=== PATIENT | female | born 1950 | race Caucasian/White ===

== ENCOUNTER → 2020-08-31 18:12 | Outpatient (CLI) | payer MEDICARE, SELFPAY ==
[2020-08-31 18:44] LABS: Basophils # 0.1 K/mm3 (0-0.2); Basophils % 0.6 % (0.1-2.0); Eosinophils # 0.3 K/mm3 (0.0-0.4); Eosinophils % 3.8 % (0.1-12.0); Hemoglobin 13.7 g/dL (12.2-16.2); Lymphocytes # 3.2 K/mm3 (0.7-4.5); Lymphocytes % 36.6 % (10-50); Mean Corpuscular HGB Conc 31.7 g/dL (31.8-35.4); Mean Corpuscular Hemoglobin 30.1 pg (27.0-31.2); Mean Corpuscular Volume 94.7 fl (81-99); Mean Platelet Volume 9.9 fl (7.4-10.4); Monocytes # 0.5 K/mm3 (0.1-1.0); Monocytes % 5.7 % (1.7-9.3); Neutrophils # 4.6 K/mm3 (1.8-7.8); Neutrophils % 53.3 % (37.0-80.0); Platelet Count 339 K/mm3 (142-424); Red Blood Count 4.54 M/mm3 (4.20-5.40); Red Cell Distribution Width 13.4 % (11.5-17.5); White Blood Count 8.7 K/mm3 (4.8-10.8)
[2020-08-31 18:45] LABS: Alanine Aminotransferase 16 U/L (12-78); Albumin Level 4.3 g/dl (3.5-5.0); Albumin/Globulin Ratio 1.6 (1.1-1.8); Alkaline Phosphatase 116 U/L (38-126); Anion Gap 10.8 mEq/L (5-15); Aspartate Amino Transferase 28 U/L (14-36); Bilirubin,Total 0.4 mg/dl (0.2-1.3); Blood Urea Nitrogen 21 mg/dl (7-17); Calcium 9.9 mg/dl (8.4-10.2); Carbon Dioxide 29 mmol/L (22.0-30.0); Chloride 107 mmol/L (98-107); Cholesterol 187 mg/dl (140-200); Estimated Glomerular Filt Rate 62 ml/min (>60); GFR (African American) 76 ML/MIN (>60); Globulin 2.7 g/dL (1.3-3.2); Glucose 123 mg/dl (74-100); HDL Cholesterol 63 mg/dl (40-60); Potassium 3.8 mmoL/L (3.5-5.1); Sodium 143 mmol/L (136-145); Triglycerides 176 mg/dl (30-150); VLDL Cholesterol 35 mg/dL (0-40)
[2020-08-31 18:57] LABS: Direct LDL Cholesterol 81.91 mg/dL (100-129)
[2020-08-31 19:02] LABS: 25-OH Vitamin D, Total 40.5 ng/mL (30-100)
[2020-08-31 19:04] LABS: T4 (Thyroxine) 6.8 ug/dl (5.53-11.0)
[2020-08-31 19:17] LABS: Thyroid Stimulating Hormone 1.86 uIU/mL (0.465-4.68)
== END ==
PROVIDERS: Visit Provider Family Medicine
DX: E78.5 Hyperlipidemia, unspecified (principal); I10 Essential (primary) hypertension; E55.9 Vitamin D deficiency, unspecified
CPT/HCPCS: 80053; 80061; 82306; 84436; 84443; 85025

== ENCOUNTER 2023-10-17 12:49 | Outpatient (CLI) | payer MEDICARE, SELFPAY ==
--- NOTE | 2023-10-17 12:49 | CA_ITS ---
APPROVED REPORT EXAM: Comprehensive 2D, Doppler, and color-flow Echocardiogram Chisel Mortiser Operator: Junie Serrano, RT(R) Ht: 5 ft 4 in Wt: 156lbs BSA: 1.76 BP: 120/68 mmHg Indications: murmur, smoker, PTSD, MDD, chronic bereavement disorder. 2D Dimensions Left Atrium 4.05 cm F: 2.7 - 3.8 LVEF (Schumacher's) 52.30 % F: 54 - 74 LVOT 1.85 cm (M/F) 1.5-2.5 LV Volume 89.10 mL F: 46 - 106 LV Volume Index 50.6 mL/m2 F: 29 - 61 LA Volume 34.60 mL LA Volume Index 19.66 mL/m2 (M/F) 16-34 EF AP4 50.10 % EF AP2 50.6 % EF BP 52.3 % GL Strain -22.2 % M-Mode Dimensions RVDd 3.08 cm (0.9-2.6) LVDd 4.76 cm (3.5-5.7) Ao Diam 1.83 cm (2.0-3.7) LVDs 3.40 cm (3.5-5.7) IVSd 0.79 cm (0.6-1.1) PWd 0.64 cm (0.6-1.1) EF (Teich) 55.00% FS 28.60% EDV (Teich) 105.40 mL ESV (Teich) 47.40 mL LV Diastology E Decel Time 203 (160-240 msec) E/A Ratio 0.5 MED E' 5.4 (>= 7 cm/sec) E'/MED E' Ratio 11.83 (<= 14) LAT E' 6.3 (>= 10 cm/sec) E/LAT E' Ratio 10.14 (<= 14) Aortic Valve LVOT Max 147.0 (70-110 cm/s) SUSANNAH Index 1.25 cm2/m2 LVOT VTI 31.42 cm AoV Peak Karri. 178.0 (50-130 cm/s) AI PHT 559.00 ms AO Mean GR. 6.20 (<5 mmHg) AO VTI 38.5 (18-25 cm) SUSANNAH (VTI) 2.20 (2.5-4.5 cm2) Mitral Valve MV E Max Karri. 64.0 (40-130 cm/s) MV A Velocity 118.0 (40-130 cm/s) E/A Ratio 0.54 MV Decel. Time 203 (160-240 ms) Tricuspid Valve TR P. Velocity 271.00 cm/s RAP Estimate 15.00 mmHg RVSP 44.30 mmHg Left Ventricle The left ventricle is normal size (LVEDd 4.9 cm, LVESd 3.0 cm). The left ventricular systolic function is normal. The left ventricular ejection fraction is within the normal range. There is increased LV wall thickness. There is normal LV segmental wall motion. Mitral diastolic dysfunction. LVEF is 55%. Right Ventricle The right ventricle is normal size. The right ventricular systolic function is normal. Atria Left atrium is mildly dilated. Right atrium is mildly dilated. There is no Doppler evidence of interatrial shunt. Aortic Valve Aortic valve is mildly thickened. There is no aortic valvular stenosis. Moderate to severe aortic regurgitation. Mitral Valve The mitral valve leaflets are mildly thickened. No evidence of mitral valve stenosis. Mild mitral regurgitation. Tricuspid Valve The tricuspid valve leaflets are thin and pliable. Moderate tricuspid regurgitation. RVSP is 30-35 mmHg. Pulmonic Valve The pulmonary valve is normal in structure. Trace pulmonic regurgitation. Great Vessels The aortic root is normal in size. The ascending aorta is not well-visualized. IVC is normal in size and collapses >50% with inspiration. Pericardium There is no pericardial effusion. Other Information Study Quality: Fair Conclusion Normal biventricular size and systolic function. LVEDd 4.9 cm, LVESd 3.0 cm. Mild biatrial dilation. Mild MR/ Moderate TR. Moderate to severe AI. Further evaluation of the AI is recommended with cardiac MRI (aortic regurgitation/cardiomyopathy protocol) to evaluate severity and accurate LV dimensions and volumes. Electronically signed by : Rosemarie Truong MD 10/23/2023 00:32:07
== END 2023-10-17 23:59 | disposition home or self-care (01) ==
LOC: RT 12:49
PROVIDERS: PCP Family Medicine; Visit Provider Family Medicine
DX: R01.1 Cardiac murmur, unspecified (principal)
CPT/HCPCS: 93306

== ENCOUNTER 2023-12-10 12:58 | Outpatient (CLI) | payer MEDICARE, SELFPAY ==
--- NOTE | 2023-12-10 12:59 | CA_ITS ---
FINAL REPORT CLINICAL HISTORY: CAMELIA-H/o right carotid endartectomy x 15 years ago, Smoker, HTN, carotid bruit FINDINGS: RIGHT CAROTID: CCA PSV - 51 cm/sec ICA PSV - 163 cm/sec ICA/CCA PSV ratio -4.9 . Comments: Moderate plaque disease is noted. LEFTCAROTID: CCA PSV - 74. cm/sec ICA PSV - 153. cm/sec ICA/CCA PSV ratio - 3.3 . Comments: Moderate plaque disease is noted. Antegrade flow is seen within the vertebral arteries. IMPRESSION: Discrepant findings between ratios and velocities. Stenoses are probably less than 50% however the ratios would suggest greater than 50% stenosis. Recommend CTA for more complete assessment. Reviewed, Interpreted and Dictated by Maria De Jesus Melendrez MD Transcribed by Xenia Llamas Authenticated and [facility]
== END 2023-12-10 23:59 | disposition home or self-care (01) ==
LOC: RT 12:59
PROVIDERS: PCP Family Medicine; Visit Provider Nurse Practitioner Family
DX: R09.89 Other specified symptoms and signs involving the circulatory and respiratory systems (principal)
CPT/HCPCS: 93880

== ENCOUNTER → 2024-02-02 08:38 | Day surgery (SDC) | payer MEDICARE, SELFPAY ==
[2024-02-02 08:43] VITALS: BMI 26.2
== END | disposition home or self-care (01) ==
PROVIDERS: PCP Family Medicine; Visit Provider Internal Medicine
DX: Z53.9 Procedure and treatment not carried out, unspecified reason (principal)

== ENCOUNTER 2024-03-03 11:28 | Day surgery (SDC) | payer MEDICARE, SELFPAY ==
[2024-03-03] VITALS (11 sets, daily range): BP systolic 141–183; BP diastolic 69–97; PULSE 65–83; RESP 16–20; O2SAT 96–98; BMI 26.2
--- NOTE | 2024-03-03 11:05 | IR_ITS ---
APPROVED REPORT Patient Location: Outpatient PROCEDURES Left heart catheterization Left ventriculogram Selective coronary angiogram Drug-eluting stent deployment to the proximal to mid LAD Drug-eluting stent deployment to the second obtuse marginal artery off the circumflex artery Right selective internal carotid artery angiogram Right selective internal carotid artery intracerebral angiogram Left selective internal carotid artery angiogram Left selective internal carotid artery intracerebral angiogram Left vertebral artery angiography Bilateral selective renal angiography INDICATION Coronary artery disease, Angina pectoris, Severe carotid artery stenosis with angiographic ambiguity, Severe hypertension suspect renovascular hypertension, Suspected renal artery stenosis, Abnormal CCTA, Informed consent was obtained prior to the procedure. COMPLICATIONS NONE Estimated Blood Loss: LESS THAN 10 ML TECHNIQUE One percent lidocaine was used to anesthetize the right groin. The right femoral artery was accessed via the Seldinger technique. A5-Bulgarian sheath was placed in the right femoral artery. The JL-4 and JR-4 catheter was also used to perform left heart catheterization left ventriculogram and selective coronary angiogram. The JR4 catheter was used to perform bilateral selective carotid artery angiography with intracerebral angiography. The JR4 catheter was also used to perform nonselective left vertebral artery angiography. Patient had a blood pressure over 200 mmHg and had bilateral carotid artery disease. Given her severe hypertension with renal dysfunction there was a high clinical suspicion for renal artery stenosis. The JR4 catheter was used to perform bilateral selective renal angiography. At the end of the diagnostic angiogram therapeutic Was administered giving a therapeutic ACT and the 5 Bulgarian sheath was exchanged for a 6 Bulgarian sheath. A 6 Bulgarian JL 4 guide catheter was placed in the left main artery followed by Choice PT extra-support wire placed in the second obtuse marginal artery. A 2.5 x 22 mm [place] frontier stent was deployed in the proximal obtuse marginal artery at 20 niraj reducing the severe stenosis to 0% an additional wire was placed into the LAD and a 3 mm x 22 mm [place] frontier stent was placed in the proximal to mid LAD and deployed at 20 niraj. While this jailed the first diagonal artery the first diagonal artery continued with JUSTINE-3 flow. There are excellent angiographic results. After achieving excellent angiograph results the apparatus was removed the groin is reprepped closure change sheath was removed good hemostasis was achieved using Perclose device patient was transferred to the postop putting in stable condition. The LAD lesion was difficult to see and required frame by frame analysis. There was a circumferential stenosis immediately after the first diagonal artery. ANGIOGRAPHIC RESULTS The left main artery Normal The left anterior descending artery Has proximal 10 to 20% stenosis. There is a concentric 80% stenosis immediately distal to a large first diagonal artery which is best evaluated in GHANAIAN 27 cranial 18 with frame by frame analysis. The remaining LAD is widely patent. The first diagonal artery is a large vessel with mid vessel 30% stenoses The circumflex artery Is a dominant vessel and has proximal calcified 50% stenosis along a tortuous bend. The large second obtuse marginal artery has a proximal concentric 90% stenosis The right coronary artery Nondominant normal The BLANCA ventriculogram reveals Normal 65% The left ventricular end-diastolic pressure 10 mmHg Left vertebral artery originates from the left subclavian artery and is widely patent Left subclavian artery has a proximal 40 to 50% stenosis Left common carotid artery is widely patent Left internal carotid artery has a proximal 40% concentric stenosis. There is no aneurysmal dilatation or atherosclerotic plaque in the distal or intracerebral vasculature Right internal carotid artery has a proximal 60 to 70% concentric stenosis. There is no aneurysmal dilatation or atherosclerotic plaque in the distal or intracerebral vasculature Right renal artery singular normal Left renal artery singular and has an ostial 40% nonflow limiting stenosis IMPRESSION Severe disease in the mid LAD as described above Successful stenting of the proximal to mid LAD severe disease reduced to 0% with 1 drug-eluting stent Successful stenting of the large second obtuse marginal artery severe disease reduced to 0% with 1 drug-eluting stent Moderate to severe right internal carotid artery stenosis which is best managed medically Moderate left internal carotid artery stenosis Normal right renal artery Mild to moderate left renal artery stenosis PLAN 1. Dual antiplatelet therapy 2. Patient is currently on metoprolol tartrate 100 mg daily. Patient should be on a twice daily beta-miri because of the fluctuating hypertension. Metoprolol will be discontinued and carvedilol 25 mg twice daily will be started 3. LDL less than 55 to achieve that high intensity statin 4. Avoidance of tobacco products 5. Risk factor modification 6. Cardiac rehabilitation Electronically signed by : Rodrigue Hanna MD 03/03/2024 14:57:43
[2024-03-03 12:15] LABS: Basophils # 0.1 K/mm3 (0-0.2); Basophils % 1.3 % (0.1-2.0); Eosinophils # 0.4 K/mm3 (0.0-0.4); Eosinophils % 4.8 % (0.1-12.0); Hematocrit 42.9 % (37.0-47.0); Hemoglobin 13.9 g/dL (12.2-16.2); Lymphocytes # 2.6 K/mm3 (0.7-4.5); Lymphocytes % 31.4 % (10-50); Mean Corpuscular HGB Conc 32.5 g/dL (31.8-35.4); Mean Corpuscular Hemoglobin 31.2 pg (27.0-31.2); Mean Corpuscular Volume 95.8 fl (81-99); Mean Platelet Volume 8.5 fl (7.4-10.4); Monocytes # 0.5 K/mm3 (0.1-1.0); Monocytes % 6.3 % (1.7-9.3); Neutrophils # 4.6 K/mm3 (1.8-7.8); Neutrophils % 56.2 % (37.0-80.0); Platelet Count 334 K/mm3 (142-424); Red Blood Count 4.47 M/mm3 (4.20-5.40); Red Cell Distribution Width 13.4 % (11.5-17.5); White Blood Count 8.2 K/mm3 (4.8-10.8)
[2024-03-03 12:16] LABS: Chloride 106 mmol/L (98-107)
[2024-03-03 12:17] LABS: Potassium 4.3 mmoL/L (3.5-5.1); Sodium 140 mmol/L (136-145)
[2024-03-03 12:20] LABS: Anion Gap 11.3 mEq/L (5-15); Blood Urea Nitrogen 27 mg/dl (7-17); Calcium 9.4 mg/dl (8.4-10.2); Carbon Dioxide 27 mmol/L (22.0-30.0); Creatinine Clearance Estimated 47 mL/min (50-200); Estimated Glomerular Filt Rate 44 ml/min (>60); GFR (African American) 54 ML/MIN (>60); Glucose 98 mg/dl (74-100)
[2024-03-03] MEDS: diphenhydrAMINE 50MG/ML VIAL 50 MG IV (12:38)
[2024-03-03] MEDS: LIDOCAINE 1% 10ML MDV 20 ML IJ (12:38)
[2024-03-03] MEDS: 0.9 % SODIUM CHLORIDE 500 ML 25 ML IV (12:38)
[2024-03-03] MEDS: FENTANYL 100MCG/2ML VIAL 50 MCG IV (12:38)
[2024-03-03] MEDS: HEPARIN 1,000 UNITS/500ML NS (CATH LAB) 3000 UNIT IV (12:38)
[2024-03-03] MEDS: MIDAZOLAM HCL 1MG/ML 5ML VIAL 1 MG IV (12:54)
[2024-03-03] MEDS: HYDRALAZINE 20MG/ML VIAL 20 MG IV (13:14)
[2024-03-03] MEDS: HEPARIN 1,000 UNITS/ML 10ML VIAL (CATH LAB) 10000 UNIT IV (13:30)
[2024-03-03] MEDS: CLOPIDOGREL 300MG TABLET 600 MG PO (14:09)
== END 2024-03-03 16:16 | disposition home or self-care (01) ==
PROVIDERS: Visit Provider Internal Medicine
DX: I25.118 Atherosclerotic heart disease of native coronary artery with other forms of angina pectoris (principal); R93.1 Abnormal findings on diagnostic imaging of heart and coronary circulation; I35.1 Nonrheumatic aortic (valve) insufficiency; I70.1 Atherosclerosis of renal artery; I77.1 Stricture of artery; I65.23 Occlusion and stenosis of bilateral carotid arteries; R94.31 Abnormal electrocardiogram [ECG] [EKG]; R01.1 Cardiac murmur, unspecified; R53.83 Other fatigue; R09.89 Other specified symptoms and signs involving the circulatory and respiratory systems; F17.210 Nicotine dependence, cigarettes, uncomplicated; Z79.899 Other long term (current) drug therapy; I10 Essential (primary) hypertension
CPT/HCPCS: 36224; 36226; 36252; 36415; 80048; 85025; 92928; 93458; 99152; 99153; C1725; C1760; C1769; C1874; C1894; C9600; J0360; J1200; J1644; J2250; J3010

== ENCOUNTER 2024-08-04 17:25 | Outpatient (CLI) | payer MEDICARE, SELFPAY ==
--- NOTE | 2024-08-04 17:27 | XR_ITS ---
PROCEDURE INFORMATION: Exam: XR Left Hip Exam date and time: 08/04/2024 5:33 PM Age: 73 years old Clinical indication: Hip pain; Left hip; Additional info: Pain w/o trauma TECHNIQUE: Imaging protocol: Radiologic exam of the left hip. Views: 2 or 3 views hip with pelvis when performed. COMPARISON: No relevant prior studies available. FINDINGS: Bones/joints: Mild left hip osteoarthrosis. No acute fracture or dislocation. Soft tissues: Unremarkable. Vasculature: Vascular grafts projecting over the aorta and iliac arteries. IMPRESSION: No acute fracture or dislocation.
== END 2024-08-04 23:59 | disposition home or self-care (01) ==
LOC: RAD 17:27
PROVIDERS: PCP Family Medicine; Visit Provider Family Medicine
DX: M25.552 Pain in left hip (principal)
CPT/HCPCS: 73502

== ENCOUNTER 2024-10-22 15:10 | Outpatient (CLI) | payer MEDICARE, SELFPAY ==
--- OUTSIDE RECORDS SUMMARY | 2024-10-22 15:12 | XMS_ITS | Encounter Summary ---
Author Organization [facility] Address [address] [place] [address] Care Team Providers Care Cloth Reeler Name Role Phone Grupo Mcallister MD Unavailable Unavailable Abelino Lyons MD Primary Care Provider Source Comments This information has been disclosed to you from confidential records protectfrom disclosure by state law. You shall make no further disclosure of thisinformation without the specific, written, and informed release of theindividual to whom it pertains, or as otherwise permitted by law. A generalauthorization for the release of medical or other information is not sufficientfor the purposes of the release of HIV test results or diagnoses. [id number] Health Encounter Details Date Type Department Care Team (Late st Contact Info) Description 03/28/2020 Orders Only [facility] Interventional Radiology [address] [place] [id number] Richelle Tavarez Social History Tobacco Use Types Packs/Day Years Used Date Smoking Tobacco: Former Cigarettes 0.3 20 Smokeless Tobacco: Never Comments:Last smoked 2018 Alcohol Use Standard Drinks/Week Comments No 0 (1 standard drink = 0.6 oz pur e alcohol) PHQ-2 Answer Date Recorded PHQ-2 Total Score 2 03/15/2020 Comments No Sex and Gender Information Value Date Recorded Sex Assigned at Female 04/08/2019 9:15 AM EST Legal Sex Female 8:00 PM EST Gender Identity Female 04/08/2019 9:15 AM EST Sexual Orientation Not on file COVID-19 Exposure Response Date Recorded In the last month, have you been in contact with someone who was confirmed or suspected to have Coronavirus / COVID-19? No / Unsure 03/30/2020 6:16 AM EST documented as of this encounter Plan of Treatment Not on file documented as of this encounter Visit Diagnoses Not on filedocumented in this encounter Additional Health Concerns Assessment Noted Time PHQ-9 Depression Total Score: 10 020 8:09 AM EDT documented as of this encounter Care Teams Cloth Reeler Relationship Specialty Start Date End Date Abelino Lyons MD [address] [place] [address] PCP - General Family Medicine 03/28/20 Grupo Mcallister MD Consulting Physician Hematology 01/11/20 documented as of this encounter
--- OUTSIDE RECORDS SUMMARY | 2024-10-22 15:12 | XMS_ITS | Clinical Summary ---
Author Organization [facility] Address [facility] [place] [address] Care Team Providers Care Director Athletic Name Role Phone Grupo Mcallister MD Unavailable Unavailable Abelino Lyons MD Primary Care Provider Source Comments This information has been disclosed to you from confidential records protectedfrom disclosure by state law. You shall make no further disclosure of thisinformation without the specific, written, and informed release of theindividual to whom it pertains, or as otherwise permitted by law. A generalauthorization for the release of medical or other information is not sufficientfor the purposes of therelease of HIV test results or diagnoses. [id number] Health Allergies Active Allergy Reactions Criticality Noted Date Comments Diphenhydramine 10/08/2019 Pt states 20 years ago it made her hyper . Medications acetaminophen (TYLENOL) 325 MG tablet Take 2 tablets (650 mg total) by mouth every 6 hours. 75 tablet 0 12/05/19 14 Active methyl salicylate-men thol 29-7.6 % Oint Apply 1 applicator topically 2 times a day as needed (for shoulder pain). 1 Jar 0 12/05/19 14 Active magnesium oxide (MAG-OX) 400 mg tablet Take 500 mg by mouth. Active metoprolol succinate (TOPROL-XL) 100 MG 24 hr tablet Take 100 mg by mouth daily. 10/09/19 20 Active warfarin (COUMADIN/JANT OVEN) 5 MG tablet Take as directed by Anticoagulation Clinic. Current dose is 2.5 mg Fridays, 5 mg all other days. 90 tablet 1 02/18/20 20 Active cholecalcifero l, vitamin D3, (VITAMIN D3) 125 mcg (5,000 unit) Tab Take by mouth. Activ e melatonin 10 mg Tab Take by mouth. Activ e clopidogreL (PLAVIX) 75 mg tablet Take 1 tablet (75 mg total) by mouth daily. 30 tablet 5 03/31/2020 5:21 PM EST 04/01/20 20 Active aspirin 81 MG chewable tablet Chew 1 tablet (81 mg total) by mouth daily. 30 tablet 03/31/2020 5:21 PM EST 03/31/20 20 Active Active Problems Problem Noted Date Diagnosed Date Presence of IVC filter 12/27/2019 Decreased strength 10/26/2019 Decreased activities of daily living (ADL) 10/25 Cervical spondylosis without myelopathy 07/30/19 20 Spondylosis of lumbosacral r egion without myelopathy or radiculopathy 07/30/2019 Skull defect 03/31/2019 Overview (03/31/2019): Added automatically from request for surgery [id number] TBI (traumatic brain injury) 02/11/2019 S/P craniotomy 01/29/2019 SAH (subarachnoid hemorrhage) 01/29/2019 Type I occipital condyle fracture, right side, s equela 01/29/2019 Chronic pain syndrome 02/16/2018 Pain of both hip joints 02/16/2018 Spondylosis of lumbar region without myelopathy or radiculopathy 02/16/2018 Encounter for long-term (cur rent) use of high-risk medication 02/16/2018 Polysubstance abuse 05/23/2017 Diverticulosis, sigmoid 08/01/2016 Overview (04/08/2019): Overview: C-scope 02/2009. C-scope q5yrs. History of cervical cancer 08/01/2016 Overview (10/26/2019): Overview: 1978. S/p cervical conization. 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/2015 Overview (10/26/2019): Overview: / Anemia 11/27/2013 Splenic laceration 11/26/2013 Anxiety 09/15/2012 Pure hypercholesterolemia 06/06/2011 Overview (04/05/2019): Overview: Muscle pain on pravastatin 40 Restarted at 10 mg qod 05/04/15 Essential hypertension 05/06/2011 PVD (peripheral vascular disease) 05/06/2011 Overview (04/05/2019): Overview: Carotid endarterectomy 03/29-Lopez Cervical arthritis 09/11/2010 Overview (04/08/2019): Overview: Chronic pain in neck MRI bone spurs Surgery suggested staci rejected Numbness 12/13/2005 Stiffness of unspecified joint, not elsewhere cl assified 12/13/2005 Tension type headache 12/13/2005 Spondylosis, cervical 12/13/2005 Other seizures Fall Resolved Problems Problem Noted Date Diagnosed Date Resolved Date half-way (current) use of anticoagulants 01/25/2020 10/19/2020 Immunizations Immunization Administration Dates Next Due Haemophilus B, HbOC conjugate 12/04/2013 Haemophilus influenzae type B 12/01/2013 Influenza, quadrivalent, wit h preservative 05/04/2015 Influenza, trivalent, live a ttenuated, intranasal 02/16/2011 Influenza, trivalent, with preservative 08/11/2016,05/04/2015 Influenza, unspecified 07/15/2016,2013,03/19/2013,02/16 Meningococcal C Conjugate 12/01/2013 Pneumococcal conjugate, 7-valent 12/01/2013,05/2006 Pneumococcal polysaccharide, 23-valent 4 Family History Medical History Relation Comments Parkinsonism Brother Cancer Maternal Grandmother leukemia Heart disease Mother Cancer Sister 1 cervical Cancer Sister 2 Pancreatic Cancer Sister 2 Anesthesia problems Neg Hx Relation Status Comments Brother Alive Father Maternal Grandmother Mother Sister 1 Sister 2 Alive Sister 3 Alive Sister 4 Alive Social History Tobacco Use Types Packs/Day Years Used Date Smoking Tobacco: Former Cigarettes 0.3 20 Smokeless Tobacco: Never Tobacco Cessation:Ready to Q uit: No; Counseling Given: No Comments:Last smoked 2018 Alcohol Use Standard Drinks/Week Comments No 0 (1 standard drink = 0.6 oz pur e alcohol) PHQ-2 Answer Date Recorded PHQ-2 Total Score 2 03/15/2020 Comments No Sex and Gender Information Value Date Recorded Sex Assigned at Female 04/08/2019 9:15 AM EST Legal Sex Female 8:00 PM EST Gender Identity Female 04/08/2019 9:15 AM EST Sexual Orientation Not on file Last Filed Vital Signs Vital Sign Reading Time Taken Comments Blood Pressure 158/69 04/21/2020 10:21 AM EST Pulse 60 04/21/2020 10:21 AM EST Temperature 36.8 C (98.3 F) 03/31/2020 3:53 PM EST Respiratory Rate 18 03/31/2020 3:53 PM EST Oxygen Saturation 91% 03/31/2020 3:53 PM EST Inhaled Oxygen Concentration 91% 03/31/2020 3 :53 PM EST Weight 69.9 kg (154 lb) 04/21/2020 10:21 AM EST Height 162.6 cm (5' 4.02 ) 03/31/2020 2:00 AM ES T Body Mass Index 26.42 03/31/2020 2:00 AM EST Plan of Treatment Not on file Medical Devices Implanted Type Area Preschool Paraprofessional Device Identifier Shelf Expiration Date Model / Serial / Lot Patch Dural Durepair Bovine Collagen Matrix L3 In X W3 In Cranial Resorbable Sterile Duraplasty - [id number] Implanted:Qty: 1 on 01/26/2019 by Melody Dale MD at [facility] Dura N/A: Brain [employer] [id number] / / [id number] Patch Dural Dura-Guard Bovine Pericardium L16 Cm X W10 Cm Sterile Latex Free - [id number] Implanted:Qty: 1 on 01/26/2019 by Melody Dale MD at [facility] Dura N/A: Brain [employer]IS 07/16/2023 [id number] / / [id number] Patch Dural Durepair Bovine Collagen Matrix L5 In X W4 In Cranium Resorbable Sterile Duraplasty - [id number] Implanted:Qty: 1 on 01/26/2019 by Melody Dale MD at [facility] Graft N/A: Brain [employer] 11/15/2020 [id number] / / [id number] Cover Weed Hole Tyro Neuro Iii Low Profile Od14 Mm Craniomaxillofacial Tab - [id number] Implanted:Qty: 2 on 04/28/2019 by Melody Dale MD at [facility] Plate Left: Cranial JERZY Anchor IntelligenceER [id number] / / Cover Weed Hole Tyro Neuro Iii Titanium H.4 Mm Od7 Mm Tab Low Profile Nonsterile - [id number] Implanted:Qty: 2 on 04/28/2019 by Melody Dale MD at [facility] Plate Left: Cranial JERZY Anchor IntelligenceER [id number] / / Screw Bone Tyro Neuro 3 L4 Mm Od1.5 Mm Self Drill Axial Stability Nonsterile Latex Free - [id number] Implanted:Qty: 15 on 04/28/2019 by Melody Dale MD at [facility] Screw Left: Cranial JERZY Anchor IntelligenceER [id number] / / Stent Biliary Cordis Palmaz Stainless Steel Xl L40 Mm Od10 Mm Delivery System Unmount Closed Cell Balloon Expand Sterile Latex Free Powerflex Plus Catheter Transhepatic - [id number] Implanted:Qty: 1 on 03/30/2020 at [facility] Stent Vena Cava [employer] Funding 07/17/2023 [id number] / / [id number] Description:inferior vena ca va Stent Ntnl 12mm 120mm Crsh Rs Opn Lum Cls Cell Scfld [place] Vns Stnt Eprsth 100cm Acpt .35mm Gw 9fr Shth - [id number] Implanted:Qty: 1 on 03/30/2020 at [facility] Stent Left: Iliac Crest 08/16/2022 [id number] / / [id number] Stent Ntnl 14mm 120mm Cath [place] Vns Stnt Eprsth 100mm Acpt .35mm Gw 9fr Shth - [id number] Implanted:Qty: 1 on 03/30/2020 at [facility] Stent Right: Iliac Crest 01/16/2022 [id number] / / [id number] Stent Endoprosthesis Wallstent Unistep Plus Metal L75 Cm L90 Mm L100 Cm Od12 Mm Odsec8 Fr Tracheobronchial Catheter Unconstrain Flexible Accepts 9 Fr Sheath - [id number] Implanted:Qty: 1 on 03/30/2020 at [facility] Stent Left: [facility]ac [facility] 03/07/2022 [id number] / / [id number] Stent Biliary Cordis Palmaz Stainless Steel Xl L50 Mm Od10 Mm Delivery System Unmount Closed Cell Balloon Expand Sterile Latex Free Powerflex Plus Catheter Transhepatic - [id number] Implanted:Qty: 1 on 03/30/2020 at [facility] Stent Vena Cava [employer] 12/17/2023 [id number] / / [id number] Description:inferior vena ca va Stent Biliary Cordis Palmaz Stainless Steel Xl L50 Mm Od10 Mm Delivery System Unmount Closed Cell Balloon Expand Sterile Latex Free Powerflex Plus Catheter Transhepatic - [id number] Implanted:Qty: 1 on 03/30/2020 at [facility] Stent Vena Cava [employer] 12/17/2023 [id number] / / [id number] Description:inferior vena ca va Filter Embolization [place] Nitinol Vena Cava Jugular Delivery Kit Sterile Latex Free Disposable - [id number] Implanted:Qty: 1 on 01/27/2019 at [facility] Vascular BARD PERIPHERAL TECH 11/15/2021 [id number] / / [id number] Description:right internal j ugular vein Insurance MEDICARE A AND B * Guarantor: ANGELA INFANTE Account Type Relation to Patient Date of Phone Billing Address Personal/Family Advance Directives For more information, please contact: [phone] * Full Code (Latest Code Status on File) Date Activated Date Inactivated Comments 03/30/2020 6:20 PM 03/31/2020 10:13 PM * Full Code Date Activated Date Inactivated Comments 10/06/2019 2:28 PM 10/07/2019 6:11 AM * Full Code Date Activated Date Inactivated Comments 04/29/2019 12:49 AM 04/30/2019 2:13 PM * Full Code Date Activated Date Inactivated Comments 01/22/2019 12:10 PM 01/30/2019 8:01 PM * Full Code Date Activated Date Inactivated Comments 11/26/2013 5:47 PM 12/04/2013 9:09 PM Care Teams Director Athletic Relationship Specialty Start Date End Date Abelino Lyons MD [address] [place] [address] PCP - General Family Medicine 03/28/20 Grupo Mcallister MD Consulting Physician Hematology 01/11/20
--- OUTSIDE RECORDS SUMMARY | 2024-10-22 15:12 | XMS_ITS | Encounter Summary ---
Author Organization [facility] Address [address] [place] [address] Care Team Providers Care Stretching Machine Operator Name Role Phone Grupo Mcallister MD Unavailable [...] release of HIV test results or diagnoses. [id number] Health Encounter Details Date Type Department Care Team (Late st Contact Info) Description 03/28/2020 Orders Only [facility] Interventional Radiology [facility] [place] [phone] Libby Nettles MD [facility]. [place] [id number] Pre-op evaluation (Primary Dx) Social History Tobacco Use Types Packs/Day Years [...] documented as of this encounter Visit Diagnoses Diagnosis Pre-op evaluation- Primary documented in this encounter Additional Health Concerns Assessment Noted Time PHQ-9 Depression Total Score: 10 020 8:09 AM EDT documented as of this encounter Care Teams Stretching Machine Operator Relationship Specialty Start Date End Date Abelino Lyons MD [address] [place] [address] PCP - General Family Medicine 03/28/20 Grupo Mcallister MD Consulting Physician Hematology 01/11/20 documented as of this encounter
--- OUTSIDE RECORDS SUMMARY | 2024-10-22 15:12 | XMS_ITS | Encounter Summary ---
Author Organization Health Address [address] [place] [address] Care Team Providers Care Stumper Feller Name Role Phone Rodger Koroma MD Primary Care Provider [phone] Grupo Mcallister MD Unavailable Unavailable Abelino Lyons MD Primary Care Provider [phone] Source Comments This information has been disclosed [...] release of HIV test results or diagnoses. [id number] Health Encounter Details Date Type Department Care Team (Late st Contact Info) Description 04/14/2019 Orders Only [facility] Back, Neck & Spine at [facility] Neuroscience [place] [address] [facility] [address] [place] [address] Danuta Escalante MA Social History Tobacco Use Types Packs/Day Years Used Date Smoking Tobacco: Some Days Cigarettes 0.3 20 Smokeless Tobacco: Never Comments:stopped a few years ago Alcohol Use Standard Drinks/Week Comments No 0 (1 standard drink = 0.6 oz pur e alcohol) PHQ-2 Answer Date Recorded PHQ-2 Score 1 04/08/2019 Comments No Sex and Gender Information Value Date Recorded Sex Assigned at Female 04/08/2019 9:15 AM EST Legal Sex Female 8:00 PM EST Gender Identity Female 04/08/2019 9:15 AM EST Sexual Orientation Not on file documented as of this encounter Plan of Treatment Not on file documented as of this encounter Visit Diagnoses Not on filedocumented in this encounter Additional Health Concerns Infection Onset Date Last Indicated Resolved Time Rule Out COVID-19 10/04/2019 10/04/2019 10/04/2019 8:54 PM EDT documented as of this encounter Care Teams Stumper Feller Relationship Specialty Start Date End Date Rodger Koroma MD PCP - General Family Medicine 02/16/19 03/27/20 Abelino Lyons MD [address] [place] [address] PCP - General Family Medicine 03/28/20 Grupo Mcallister MD Consulting Physician Hematology 01/11/20 documented as of this encounter
--- OUTSIDE RECORDS SUMMARY | 2024-10-22 15:12 | XMS_ITS | Clinical Summary ---
Author Organization Healthcare Address [address] [place] [address] Care Team Providers Care Straightening Press Operator Name Role Phone Abelino Lyons MD Primary Care Provider [phone] Social History Tobacco Use Types Packs/Day Years Used Date Smoking Tobacco: Never Assessed Comments Unknown Sex and Gender Information Value Date Recorded Sex Assigned at Not on file Legal Sex Female 2:32 PM EDT Gender Identity Not on file Sexual Orientation Not on file Plan of Treatment Health Maintenance Due Date Last Done Comments [facility]-Bone Density Scan 1952 [facility]-Depression Screening 1952 [facility]-Hepatitis C Screening 1950 [facility]-Medicare Annual Wellness (AWV) 1950 [facility]-/Child/Adol SDOH Screenings 1950 [facility]- SDOH Screenings 1970 [facility]-Adult SDOH Screenings 1970 [facility]-DTaP,Tdap,and Td Vaccines (1 - Tdap) 10/11/1971 CT Colonography 1997 Colonoscopy 1997 FIT-DNA 1997 FIT 1997 FOBT 1997 Sigmoidoscopy 1997 [facility]-Colorectal Cancer Screening 1997 [facility]-Breast Cancer Screening 2002 [facility]-Pneumococcal Vaccine: 50+ Years (1 of 1 - PCV) 2002 12/01/2013 [facility]Y-Zoster Vaccines (1 of 2) 2002 [id number] Vaccine (1 - season) 2024 [facility]-Influenza Vaccine (Season Ended) 2025 08/11/2016, 07/15/2016, 05/04/2015, Additional history exists [facility]Y-RSV Vaccine: 60+ Years or (1 - 1-dose 75+ series) 10/11/2027 [facility]-HIB Vaccines Aged Out 12/01/2013 No longer e ligible based on patient's age to complete this topic HPV Vaccines Aged Out No longer eligi ble based on patient's age to complete this topic UKY-Hepatitis A Vaccines Aged Out No longer eligible based on patient's age to complete this topic UKY-IPV Vaccines Aged Out No longer e ligible based on patient's age to complete this topic UKY-Rotavirus Vaccines Aged Out No lo nger eligible based on patient's age to complete this topic Insurance MEDICARE Member Subscriber Plan / Payer (Ef fective 2014-Present) Name:Jacy Infante Member ID:[id number] Relation to Subscriber:Self Name:Jacy Infante Subscriber ID:[id number] Payer ID:MEDICARE Group ID:Not on file Type:Medicare Address: [place] [phone] Care Teams Straightening Press Operator Relationship Specialty Start Date End Date Abelino Lyons MD [facility] [place] [address] PCP - General 01/01/24
--- OUTSIDE RECORDS SUMMARY | 2024-10-22 15:12 | XMS_ITS | Encounter Summary ---
Author Organization [facility] Address [address] [place] [address] Care Team Providers Care Woodyard Operator Name Role Phone Grupo Mcallister MD [...] release of HIV test results or diagnoses. [id number] Health Encounter Details Date Type Department Care Team (Late st Contact Info) Description 03/31/2020 Orders Only [facility] Interventional Radiology [address] [place] [id number] Elliot Arenas MD [address] [place] [phone] Social History Tobacco Use Types Packs/Day Years [...] Noted Time PHQ-9 Depression Total Score: 10 01/09/ 020 8:09 AM EDT documented as of this encounter Care Teams Woodyard Operator Relationship Specialty Start Date End Date Abelino Lyons MD [address] [place] [address] PCP - General Family Medicine 03/28/20 Grupo Mcallister MD Consulting Physician Hematology 01/11/20 documented as of this encounter
--- OUTSIDE RECORDS SUMMARY | 2024-10-22 15:12 | XMS_ITS | Encounter Summary ---
Author Organization [facility] Address [address] [place] [address] Care Team Providers Care Mash Processing Operator Name Role Phone Rodger Koroma MD Primary Care Provider [phone] Grupo Mcallister MD Unavailable Unavailable Abelino Lyons MD Primary Care Provider [phone] Source Comments This information has been disclosed [...] release of HIV test results or diagnoses. [id number] Health Encounter Details Date Type Department Care Team (Late st Contact Info) Description 02/16/2019 Orders Only [facility] Back, Neck & Spine at [facility] Neuroscience [place] [address] [facility] [address] [place] [address] Melody Dale MD [address] [facility] [address] [place], [place] [id number] Social History Tobacco Use Types Packs/Day Years Used Date Smoking Tobacco: Some Days Cigarettes 0.3 20 Smokeless Tobacco: Never Alcohol Use Standard Drinks/Week Comments No 0 (1 standard drink = 0.6 oz pur e alcohol) Comments No Sex and Gender Information Value [...] documented as of this encounter Care Teams Mash Processing Operator Relationship Specialty Start Date End Date Rodger Koroma MD PCP - General Family Medicine 02/16/19 03/27/20 Abelino Lyons MD [address] [place] [address] PCP - General Family Medicine 03/28/20 Grupo Mcallister MD Consulting Physician Hematology 01/11/20 documented as of this encounter
[2024-10-22 15:41] LABS: Blood Urea Nitrogen 34 mg/dl (7-17); Estimated Glomerular Filt Rate 34 ml/min (>60); GFR (African American) 41 ML/MIN (>60)
--- NOTE | 2024-10-22 15:45 | CT_ITS ---
FINAL REPORT TECHNIQUE: Thin section axial images were obtained through the abdomen after contrast injection per CT angiogram protocol. Multiplanar reconstruction images were obtained from the axial data. This exam was performed with techniques to keep radiation dose as low as reasonably achievable. This includes automated exposure control, adjustment of the MA and KVP, and iterative reconstruction technique. CLINICAL HISTORY: Elev BP; Aortic Graft; Abdominal Pain COMPARISON: None FINDINGS: CTA: No abdominal aortic aneurysm or aortic dissection. The celiac axis and superior mesenteric artery are patent. The inferior mesenteric artery is stenotic at the origin but fills distal to the origin. The iliac arteries are patent bilaterally. The renal arteries are patent. There is a graft within the inferior vena cava extending into both common iliac veins. Patency can not be evaluated as the exam was performed in arterial phase and no contrast is present in the venous structures. NONVASCULAR: The gallbladder is absent. The spleen is absent. The remaining solid organs are without abnormality. There is no evidence of bowel obstruction. There is a left periumbilical hernia containing a portion of transverse colon. There is no lymphadenopathy. No ascites. No acute osseous abnormality. IMPRESSION: No evidence of abdominal aortic aneurysm or dissection. ALIYA stenosis. Otherwise, the vessels are patent. IVC graft extending into the common iliac veins can not be evaluated due to contrast timing. Left periumbilical hernia containing colon. Reviewed, Interpreted and Dictated by Rebeca Gray MD Transcribed by Rosalba Wilkes Authenticated and [facility]
[2024-10-22] MEDS: 0.9 % SODIUM CHLORIDE 50 ML VIAL IV (16:16)
[2024-10-22] MEDS: SODIUM CHLORIDE 0.9% 10ML SYR (RAD ONLY) 10 ML IV (16:16)
[2024-10-22] MEDS: IOPAMIDOL-370 (76%);100ML BOTTLE 80 ML IV (16:16)
== END 2024-10-22 23:59 | disposition home or self-care (01) ==
LOC: RAD 15:10
PROVIDERS: PCP Family Medicine; Visit Provider Family Medicine
DX: K55.1 Chronic vascular disorders of intestine (principal); K42.9 Umbilical hernia without obstruction or gangrene; I65.29 Occlusion and stenosis of unspecified carotid artery; R93.1 Abnormal findings on diagnostic imaging of heart and coronary circulation; I25.118 Atherosclerotic heart disease of native coronary artery with other forms of angina pectoris; R94.31 Abnormal electrocardiogram [ECG] [EKG]; I77.9 Disorder of arteries and arterioles, unspecified; R09.89 Other specified symptoms and signs involving the circulatory and respiratory systems; I35.1 Nonrheumatic aortic (valve) insufficiency; R10.9 Unspecified abdominal pain; R03.0 Elevated blood-pressure reading, without diagnosis of hypertension; Z95.828 Presence of other vascular implants and grafts
CPT/HCPCS: 36415; 74175; 82565; 84520; Q9967

== ENCOUNTER 2024-11-03 14:34 | Outpatient (CLI) | payer MEDICARE, SELFPAY ==
--- NOTE | 2024-11-03 14:30 | CA_ITS ---
APPROVED REPORT EXAM: Comprehensive 2D, Doppler, and color-flow Echocardiogram Surgical Specialist: Junie Serrano RT(R) Ht: 5 ft 4 in Wt: 165lbs BSA: 1.80 BP: 152/100 mmHg Indications: murmur, aortic insufficiency 2D Dimensions LVEF (Schumacher's) 59.00 % F: 54 - 74 LV Volume 99.80 mL F: 46 - 106 LV Volume Index 55.4 mL/m2 F: 29 - 61 LA Volume 31.90 mL LA Volume Index 17.72 mL/m2 (M/F) 16-34 EF AP4 55.70 % EF AP2 60.6 % EF BP 59.0 % GL Strain -17.8 % M-Mode Dimensions RVDd 2.58 cm (0.9-2.6) LA Diam 4.31 cm (1.9-4.0) LVDd 4.60 cm (3.5-5.7) LVDs 3.42 cm (3.5-5.7) IVSd 1.10 cm (0.6-1.1) PWd 0.99 cm (0.6-1.1) EF (Teich) 50.60% FS 25.70% EDV (Teich) 97.30 mL ESV (Teich) 48.10 mL LV Diastology E Decel Time 180 (160-240 msec) E/A Ratio 0.4 Mitral Valve MV E Max Karri. 48.0 (40-130 cm/s) MV A Velocity 134.0 (40-130 cm/s) E/A Ratio 0.36 MV PHT 53.0 ms Tricuspid Valve TR P. Velocity 260.00 cm/s RAP Estimate 10.00 mmHg RVSP 37.00 mmHg Left Ventricle The left ventricle is normal size (LVEDD 4.7 cm, LVESD 3.2 cm). The left ventricular systolic function is normal. The left ventricular ejection fraction is within the normal range. There is increased LV wall thickness. Proximal septal thickening is present. IVSD is 1.4 cm. There is no evidence of LVOT obstruction at rest. There is normal LV segmental wall motion. Transmitral Doppler flow pattern suggests impaired LV relaxation. LVEF is 60%. Right Ventricle The right ventricle is normal size. The right ventricular systolic function is normal. Atria Left atrium is mildly dilated. Right atrium is mildly dilated. There is no Doppler evidence of interatrial shunt. Aortic Valve The aortic valve is mildly thickened. There is no aortic valvular stenosis. Moderate to severe aortic regurgitation. Mitral Valve Mild mitral annular calcification is present. The mitral valve leaflets are mildly thickened. No evidence of mitral valve stenosis. Mild mitral regurgitation. Tricuspid Valve Tricuspid valve is grossly normal in structure and function. Mild tricuspid regurgitation. RVSP 25-30 mmHg. Pulmonic Valve The pulmonary valve is normal in structure. Trace pulmonic regurgitation. Great Vessels The aortic root is normal in size. IVC is normal in size and collapses >50% with inspiration. Pericardium There is no pericardial effusion. Other Information Study Quality: Fair Conclusion Normal biventricular size and systolic function (LVEDD 4.7 cm, LVESD 3.2 cm) There is increased LV wall thickness. Proximal septal thickening is present. IVSD is 1.4 cm. Mild biatrial dilation. No evidence of LVOT obstruction at rest. Moderate to severe AI. Mild MR, mild TR. In the setting of marked increased LV wall thickness of IVSd 1.4 cm, further evaluation with cardiac MRI (amyloidosis + HCM protocol) may be suggested. Compared to prior study from 10/17/2023, the LV dimensions and severity of AI are unchanged. In the setting of moderate to severe AI, serial TTE evaluations are suggested. Electronically signed by : Rosemarie Truong MD 11/07/2024 20:48:45
--- OUTSIDE RECORDS SUMMARY | 2024-11-03 14:39 | XMS_ITS | Clinical Summary ---
Author Organization Healthcare Address [address] [place] [address] Care Team Providers Care Forest Landscape Ecology Professor Name Role Phone Abelino Lyons MD Primary Care Provider [phone] Social History Tobacco Use Types Packs/Day Years [...] 12/01/2013 [facility]-Zoster Vaccines (1 of 2) 2002 [id number]-[id number]-53 Vaccine (1 - season) 2024 [facility]-Influenza Vaccine [...] Payer (Ef fective 2014-Present) Name:Jacy Infante Member ID:[id number] Relation to Subscriber:Self Name:Jacy Infante Subscriber ID:[id number] Payer ID:MEDICARE Group ID:Not on file Type:Medicare Address: [place] [phone] Care Teams Forest Landscape Ecology Professor Relationship Specialty Start Date End Date Abelino Lyons MD [facility] [place] [address] PCP - General 01/01/24
--- OUTSIDE RECORDS SUMMARY | 2024-11-03 14:39 | XMS_ITS | Clinical Summary ---
Author Organization [facility] Address [address] [facility] [address] [place] [address] Phone Care Team Providers Care Vice President Mission Integration Name Role Phone Nevaeh Camacho MD [facility] Conditions or Problems Problem Name Problem Code Onset Date Status Entry Date Provider Comment Standard Description Annotate SPONDYLOSIS, CERVICAL M47.812 (ICD-10-CM) Active Nevaeh Camacho MD Spondylosis without myelopathy or radiculopathy , cervical region Take Note of NUMBNESS [id number] (SNOMED CT) Active Nevaeh Camacho MD Numbness Take Note of NECK STIFFNESS M25.60 (ICD-10-CM) Active Nevaeh Camacho MD Stiffness of unspecified joint, not elsewhere classified Take Note of HEADACHE, TENSION [id number] (SNOMED CT) Active Nevaeh Camacho MD Tension-type headache Medications Medication Instructions Start Date Stop Date Generic Name NDC Provider JOSE MIGUEL CORLEY HOT FLASH RELIEF 40 MG CAPS Non-[place] JOSE MIGUEL CORLEY [id number] Nevaeh Camacho MD VICODIN 5-500 MG TABS Non-[place] HYDROCODONE- ACETAMINOPHE N [id number] Nevaeh Camacho MD Medications Administered No information available. Allergies, Adverse Reactions, Alerts Allergy Name Reaction Description Start Date Severity Statu s Provider BENADRYL Andrea Camacho MD TYLENOL PM EXTRA STRENGTH Andrea colin MD Results No information available. Plan of Care No information available. Procedures No information available. Vital Signs Date Name Value Unit Description BP Diastolic 68 mm[Hg] blood pressu re, diastolic BP Systolic 110 mm[Hg] blood pressur e, systolic Height 64 [in_us] height E&M Weight Measured 138 [lb_av] weight E& M Weight Measured 138 [lb_av] weight E& M Immunizations No information available. Advance Directives No information available.
== END 2024-11-03 23:59 | disposition home or self-care (01) ==
LOC: RT 14:34
PROVIDERS: PCP Family Medicine; Visit Provider Physician Assistant
DX: I08.3 Combined rheumatic disorders of mitral, aortic and tricuspid valves (principal)
CPT/HCPCS: 93306

== ENCOUNTER 2025-02-24 10:07 | Outpatient (CLI) | payer MEDICARE, SELFPAY ==
[2025-02-24 10:35] LABS: Blood Urea Nitrogen 39 mg/dl (7-17); Creatinine,Serum 1.60 mg/dl (0.52-1.04); Estimated Glomerular Filt Rate 32 ml/min (>60); GFR (African American) 38 ML/MIN (>60)
== END 2025-02-24 23:59 | disposition home or self-care (01) ==
LOC: RAD 10:08
PROVIDERS: PCP Family Medicine; Visit Provider Physician Assistant
DX: I35.1 Nonrheumatic aortic (valve) insufficiency (principal); I65.29 Occlusion and stenosis of unspecified carotid artery; I77.9 Disorder of arteries and arterioles, unspecified; R94.31 Abnormal electrocardiogram [ECG] [EKG]
CPT/HCPCS: 36415; 82565; 84520

== ENCOUNTER 2025-04-26 10:09 | Outpatient (CLI) | payer MEDICARE, SELFPAY ==
--- NOTE | 2025-04-26 10:30 | MR_ITS ---
APPROVED REPORT Wellness Coach: CLINICAL INDICATION HCM vs. amyloidosis evaluation. Increased LV wall thickness. TECHNIQUE Image Acquisition: Cardiac magnetic resonance (CMR) was performed on Siemens Espree MRI 1.5T scanner. Software platform sequences were performed using the Siemens Curasight MR B19 platform. A set of three-plane, low-resolution, large [id number] localizers were initially acquired. Then axial, coronal, sagittal TrueFISP, as well as axial HASTE images, were obtained. These were followed by gated TrueFISP breathold cinematic sequences obtained in the short axis with 8 mm slices and 2 mm gaps, 2-chamber (vertical long axis), 3-chamber, 4-chamber (horizontal long axis). A bolus of contrast was injected intravenously with first-pass sequences obtained in the short axis and four-chamber planes. After approximately 10 minutes, a TI electric wheelchair repairer sequence was performed to determine the optimal TI time. Using the optimized TI time, delayed contrast enhancement segmented inversion???recovery TurboFLASH sequences were obtained in the short axis, 2-chamber, 3-chamber, and 4-chamber projections. 2D-velocity phase mapping was performed. Functional parameters were calculated by offline analysis on an independent workstation ([employer], [employer]). Contrast: ProHance??? (Gadoteridol) FINDINGS MORPHOLOGY AND FUNCTION Left ventricle: The left ventricle is normal in size. The indexed left ventricular end-diastolic volume (LVEDVi) is 68 ml/m2 (reference range 57-105 ml/m2 in males, 56-96 ml/m2 in females). Normal left ventricular systolic function is present. There is asymmetic increase in proximal septal LV wall thickness. Maximum LV wall thickness is 1.53 cm.There are no regional wall motion abnormalities noted. LVEF is calculated at 63.2% (reference range 57-77%). Right ventricle: The right ventricle is normal in size. The indexed right ventricular end-diastolic volume (RVEDVi) is 62 ml/m2 (reference range 61-121 ml/m2 in males, 48-112 ml/m2 in females). Normal right ventricular systolic function is present. RVEF is calculated at 61.3% (reference range 52-72% in males, 51-71% in females). Atria: The left atrium is severely dilated. The maximum indexed left atrial volume is 51 ml/m2 (reference range 26-52 ml/m2 in males, 27-53 ml/m2 in females). The right atrium is mildly . The maximum indexed right atrial volume is 36 ml/m2 (reference range 18-90 ml/m2). Aorta: The diameter of the aortic annulus is normal, measuring 25 mm (coronal view reference range 21-30 mm in males, 19-27 mm in females). The diameter of the aortic sinus is normal, measuring 29 mm (coronal view reference range 25-42 mm in males, 24-36 mm in females). The diameter of the sinotubular junction is normal, measuring 30 mm (coronal view reference range 18-32 mm in males, 18-28 mm in females). The diameters of the ascending and descending thoracic aorta are normal. Main pulmonary artery: The main pulmonary artery diameter is normal. Pericardium: The pericardial thickness is normal. The pericardial thickness measures 1.5 mm (normal < 4.0 mm). There is no pericardial effusion. VALVES Aortic regurgitation is present. Systolic anterior motion of the mitral valve is not visualized. Ratio of pulmonary to systemic flow, Qp:Qs ratio = 1.3 (normal < or = 1.2, hemodynamically significant shunt > 1.5), demonstrating no evidence of hemodynamically significant shunt. TISSUE CHARACTERIZATION Resting Perfusion: Normal myocardial blood flow at rest. No evidence of resting hypoperfusion. Myocardial Fibrosis and/or edema: There is faint patchy with gadolinium enhancement (LGE) noted in the septal and inferospetal LV wall. The LGE occupies < 5% of the total myocardial thickness. OTHER No other significant findings are noted. However, this exam is focused on the cardiac structure and function. IMPRESSION Normal LV size with normal LV systolic function. LVEDVi= 68 ml/m2 and LVEF= 63.2%. Asymmetric increase in proximal septal thickening. Maximum LV wall thickness 1.52 cm. No evidence of RODERICK or LVOT obstruction at rest. Normal RV size with normal RV systolic function. RVEDVi= 62 ml/m2 and RVEF= 61.3%. Biatrial enlargement. Faint patchy with gadolinium enhancement (LGE) noted in the septal and inferospetal LV wall. Perfusion analysis demonstrates normal blood flow at rest with no evidence of resting hypoperfusion. Ratio of pulmonary to systemic flow, Qp:Qs ratio = 1.3 (normal < or = 1.2, hemodynamically significant shunt > 1.5), demonstrating no evidence of hemodynamically significant shunt. The above CMR findings are suggestive of hypertrophic cardiomyopathy in the setting of marked asymmetric increase in LV wall thickness > 15.0 mm, as well as the presence of patchy LGE in the septal LV wall (<5% LGE burden). Further HCM evaluation will be suggested with stress echocardiography to evaluate for provocal LVOT gradient, heart rhythm monitor, as well as genetic studies. COMPARISON None CRITICAL RESULT None COMMUNICATION As above. The findings of this cardiac MR were reviewed, reported, and signed by Glen Truong MD ([place]). Conclusion Electronically signed by : Rosemarie Truong MD 05/05/2025 14:11:34
[2025-04-26 10:42] LABS: Blood Urea Nitrogen 30 mg/dl (7-17); Creatinine,Serum 1.30 mg/dl (0.52-1.04); Estimated Glomerular Filt Rate 40 ml/min (>60); GFR (African American) 49 ML/MIN (>60)
[2025-04-26] MEDS: SODIUM CHLORIDE 0.9% 10ML SYR (RAD ONLY) 10 ML IV (12:22)
[2025-04-26] MEDS: 0.9 % SODIUM CHLORIDE 50 ML VIAL 40 ML IV (12:22)
[2025-04-26] MEDS: GADOTERIDOL INJ 20ML SYRINGE 13 ML IV (12:22)
== END 2025-04-26 23:59 | disposition home or self-care (01) ==
LOC: RAD 10:10
PROVIDERS: PCP Family Medicine; Visit Provider Physician Assistant
DX: I51.7 Cardiomegaly (principal); I35.1 Nonrheumatic aortic (valve) insufficiency; I65.23 Occlusion and stenosis of bilateral carotid arteries; R94.31 Abnormal electrocardiogram [ECG] [EKG]; R93.1 Abnormal findings on diagnostic imaging of heart and coronary circulation
CPT/HCPCS: 36415; 75561; 82565; 84520; A9576